=== PATIENT | female | born 1965 | race Hispanic/Latino ===

== ENCOUNTER → 2018-11-10 | Outpatient (CLI) | payer BC ==
[~2018-11-10] MED LIST: LIDOCAINE/PRILOCAINE CREAM 5GM TUBE TP ONE
[2018-11-10 14:31] VITALS: BP 120/73
== END | disposition home or self-care (01) ==
LOC: WHH 11:15
PROVIDERS: ATTEND Podiatrist Foot & Ankle Surgery
DX: E11.621 Type 2 diabetes mellitus with foot ulcer (principal); L97.511 Non-pressure chronic ulcer of other part of right foot limited to breakdown of skin; L97.411 Non-pressure chronic ulcer of right heel and midfoot limited to breakdown of skin; E11.42 Type 2 diabetes mellitus with diabetic polyneuropathy; I10 Essential (primary) hypertension; E66.9 Obesity, unspecified
CPT/HCPCS: 82948; 99205; A4450; A4649; J3490

== ENCOUNTER 2019-12-21 06:16 | Inpatient (IN) | payer BC ==
[~2019-12-21] VITALS: Ht 152.4 cm; Wt 117.7 kg
[2019-12-21] MEDS ORDERED: ACETAMINOPHEN EXTRA STRENGTH 500 MG TABLET ONE (07:54)
[2019-12-21] MEDS ORDERED: AZITHROMYCIN 250 MG TABLET PO ONE (07:54)
[2019-12-21 08:09] LABS: BASOPHILS % (AUTO) 0.2 % (0.0-5.0); EOSINOPHILS % (AUTO) 0.2 % (0.0-8.0); HEMATOCRIT 36.3 % (36-48); LYMPHOCYTES % (AUTO) 17.7 % (21.0-51.0); MEAN CORPUSCULAR HEMOGLOBIN 29.2 pg (27.0-33.0); MEAN CORPUSCULAR HGB CONC 32.8 g/dL (32.0-36.0); MEAN CORPUSCULAR VOLUME 89.2 fL (79-99); MONOCYTES % (AUTO) 4.1 % (3.0-13.0); NEUTROPHILS % (AUTO) 77.3 % (40.0-77.0); PLATELET COUNT (AUTO) 261 K/uL (130-400); RED BLOOD CELL COUNT(AUTO) 4.07 MIL/uL (4.00-5.50); WHITE BLOOD COUNT (AUTO) 9.6 K/uL (4.8-10.8)
[2019-12-21] MEDS ORDERED: AZITHROMYCIN 500MG+NS 250ML 250 ML IV ONE (08:11)
[2019-12-21 08:33] LABS: ALANINE AMINOTRANSFERASE 22 U/L (12-78); ALBUMIN 2.7 g/dL (3.5-5.0); ASPARTATE AMINOTRANSFERASE 25 U/L (10-37); BILIRUBIN,TOTAL 0.4 mg/dL (0.2-1.0); CARBON DIOXIDE 24 mmol/L (21-32); CHLORIDE 100 mmol/L (101-111); CREATINE KINASE, TOTAL 147 U/L (21-232); CREATININE 0.8 mg/dL (0.5-1.5); GLOMERULAR FILTR. RATE CALC 79 mL/min (>60); GLUCOSE,RANDOM 240 mg/dL (70-105); MYOGLOBIN 64 ng/mL (10-92); POTASSIUM 3.4 mmol/L (3.5-5.1); SODIUM SERUM 137 mmol/L (136-145); TOTAL PROTEIN, SERUM 7.5 g/dL (6.0-8.3); TROPONIN I < 0.04 ng/mL (0.00-0.06); UREA NITROGEN, BLOOD 8 mg/dL (7-18)
[2019-12-21 08:34] LABS: INR 0.9 (0.85-1.15); PARTIAL THROMBOPLASTIN TIME 35.2 SEC (26.3-35.5); PROTHROMBIN TIME 9.8 SEC (9.6-11.6)
[2019-12-21] MEDS ORDERED: ACETAMINOPHEN 325 MG TAB PO PRN ×2 (10:30)
[2019-12-21] MEDS ORDERED: ONDANSETRON HCL 4 MG/2 ML VIAL IVP PRN (10:30)
[2019-12-21] MEDS ORDERED: ALBUTEROL INHALER 90MCG/INH IH ONE (10:48)
[2019-12-21] MEDS ORDERED: GABA-529 PO (12:04)
[2019-12-21] MEDS ORDERED: LISI-613 PO (12:04)
[2019-12-21] MEDS ORDERED: GLIP10TA9 PO (12:04)
[2019-12-21] MEDS ORDERED: EMPA10TA PO (12:04)
[2019-12-21] MEDS ORDERED: METF-446 PO (12:04)
[2019-12-21] MEDS ORDERED: METHYLPREDNISOLONE SOD SUCC 40MG/ML 1ML ONE (12:08)
[2019-12-21] MEDS ORDERED: CEFTRIAXONE SODIUM 1 GM ONE (12:08)
[2019-12-21] MEDS ORDERED: FAMOTIDINE 20MG TAB 20 MG TAB ONE ×2 (14:56→23:02)
[2019-12-21] MEDS ORDERED: ENOXAPARIN SODIUM 60 MG/0.6 ML SQ ONE (14:56)
[2019-12-21] MEDS ORDERED: GLUCAGON 1MG KIT 1 MG ML IM PRN (16:45)
[2019-12-21] MEDS ORDERED: DEXTROSE 50%-WATER 50 ML DISP.SYRIN IV PRN (16:45)
[2019-12-21] MEDS ORDERED: FAMOTIDINE 20MG TAB 20 MG TAB PO SCH (21:00)
[2019-12-21] MEDS ORDERED: INSULIN HUMULIN R 100 UNIT/ML 3ML ONE (23:03)
[2019-12-22] MEDS ORDERED: BENZONATATE 100 MG CAPSULE PO ONE ×4 (03:54→15:22)
[2019-12-22] MEDS ORDERED: METHYLPREDNISOLONE SOD SUCC 40MG/ML 1ML ONE ×3 (03:54→21:56)
[2019-12-22] MEDS ORDERED: AZITHROMYCIN 500MG+NS 250ML 250 ML IV ONE (07:34)
[2019-12-22] MEDS ORDERED: SODIUM CHLORIDE 0.9% 250 ML IV ONE (07:37)
[2019-12-22] MEDS ORDERED: FAMOTIDINE 20MG TAB 20 MG TAB ONE (07:39)
[2019-12-22 07:44] LABS: BASOPHILS % (AUTO) 0.2 % (0.0-5.0); HEMATOCRIT 38.4 % (36-48); LYMPHOCYTES % (AUTO) 24.1 % (21.0-51.0); MEAN CORPUSCULAR HGB CONC 33.1 g/dL (32.0-36.0); MEAN CORPUSCULAR VOLUME 90.6 fL (79-99); MONOCYTES % (AUTO) 5.2 % (3.0-13.0); NEUTROPHILS % (AUTO) 69.9 % (40.0-77.0); PLATELET COUNT (AUTO) 322 K/uL (130-400); RED BLOOD CELL COUNT(AUTO) 4.24 MIL/uL (4.00-5.50); RED CELL DISTRIBUTION WIDTH 12.9 % (11.0-15.5); WHITE BLOOD COUNT (AUTO) 4.6 K/uL (4.8-10.8)
[2019-12-22] MEDS ORDERED: INSULIN HUMULIN R 100 UNIT/ML 3ML ONE ×2 (07:53→15:24)
[2019-12-22 08:12] LABS: CREATININE 0.8 mg/dL (0.5-1.5); POTASSIUM 3.8 mmol/L (3.5-5.1)
[2019-12-22] MEDS ORDERED: CEFTRIAXONE SODIUM 1 GM ONE (15:05)
[2019-12-22] MEDS ORDERED: ENOXAPARIN SODIUM 40 MG/0.4 ML SYRINGE SQ ONE (15:05)
[2019-12-22] MEDS ORDERED: SODIUM CHLORIDE 0.9% 50 ML IV ONE (15:05)
--- NOTE | 2019-12-22 15:14 | NUR ---
DCP: HOME Sw unable to speak to pt who is in ER covid unit. Pt spoke to pt's Tomas leary [phone]. They have 4 adult children 2 are still at home sons,22 and 25. believes 25yro son has covid as well and is waiting for results of covid test taken yesterday. Prior to covid exposure, pt was independent, no DME or in home care services. Pt is seen at [facility] and uses [facility] for rx medications. Plan is home at mo Addendum: 12/22/19 at 1527 by ALEAH MOLINA Amended: Links added.
[2019-12-23 05:28] LABS: BASOPHILS % (AUTO) 0.2 % (0.0-5.0); HEMATOCRIT 34.7 % (36-48); LYMPHOCYTES % (AUTO) 18.7 % (21.0-51.0); MEAN CORPUSCULAR HEMOGLOBIN 29.4 pg (27.0-33.0); MEAN CORPUSCULAR HGB CONC 32.9 g/dL (32.0-36.0); MEAN CORPUSCULAR VOLUME 89.4 fL (79-99); MONOCYTES % (AUTO) 6.5 % (3.0-13.0); NEUTROPHILS % (AUTO) 73.6 % (40.0-77.0); PLATELET COUNT (AUTO) 351 K/uL (130-400); RED BLOOD CELL COUNT(AUTO) 3.88 MIL/uL (4.00-5.50); RED CELL DISTRIBUTION WIDTH 12.8 % (11.0-15.5); WHITE BLOOD COUNT (AUTO) 5.9 K/uL (4.8-10.8)
[2019-12-23] MEDS ORDERED: METHYLPREDNISOLONE SOD SUCC 40MG/ML 1ML ONE ×2 (06:45→14:09)
[2019-12-23] MEDS ORDERED: AZITHROMYCIN 500MG+NS 250ML 250 ML IV ONE (07:32)
[2019-12-23] MEDS ORDERED: BENZONATATE 100 MG CAPSULE PO ONE ×2 (07:39→21:38)
[2019-12-23] MEDS ORDERED: INSULIN HUMULIN R 100 UNIT/ML 3ML ONE ×3 (07:40→21:32)
[2019-12-23 07:49] LABS: ALBUMIN 2.4 g/dL (3.5-5.0); BILIRUBIN,TOTAL 0.3 mg/dL (0.2-1.0); CREATININE 0.8 mg/dL (0.5-1.5); CRP QUANTITATIVE 96.3 mg/L (0.00-9.0); TOTAL PROTEIN, SERUM 7.1 g/dL (6.0-8.3)
[2019-12-23] MEDS ORDERED: SODIUM CHLORIDE 0.9% 100 ML IV ONE (14:10)
[2019-12-23] MEDS ORDERED: CEFTRIAXONE SODIUM 1 GM ONE (14:10)
[2019-12-23] MEDS ORDERED: FAMOTIDINE 20MG TAB 20 MG TAB ONE (14:10)
[2019-12-23 14:34] LABS: APPEARANCE,URINE Clear (CLEAR); BILIRUBIN,URINE Negative (NEGATIVE); COLOR,URINE Yellow (YELLOW); GLUCOSE, URINE (UA) >=1000 mg/dL (NEGATIVE); KETONES,URINE 15 mg/dL (NEGATIVE); LEUKOCYTE ESTERASE ,URINE Negative (NEGATIVE); NITRATE,URINE Negative (NEGATIVE); OCCULT BLOOD,URINE Negative (NEGATIVE); PH,URINE 5.5 (5.0-8.0); PROTEIN,URINE POS 1+ mg/dL (NEGATIVE)
[2019-12-23 14:52] LABS: BACTERIA,URINE Rare /HPF (None Seen); MUCUS,URINE Rare LPF (None Seen); RBC,URINE 0-1 /HPF (0-1); SQUAMOUS EPITHELIAL CELL,UR Few /HPF (0-2); WBC,URINE 0-1 /HPF (0-1)
[2019-12-24] MEDS ORDERED: METHYLPREDNISOLONE SOD SUCC 40MG/ML 1ML ONE (05:33)
[2019-12-24 05:59] LABS: BASOPHILS % (AUTO) 0.1 % (0.0-5.0); HEMATOCRIT 33.8 % (36-48); LYMPHOCYTES % (AUTO) 26.5 % (21.0-51.0); MEAN CORPUSCULAR HEMOGLOBIN 30.2 pg (27.0-33.0); MEAN CORPUSCULAR HGB CONC 33.4 g/dL (32.0-36.0); MEAN CORPUSCULAR VOLUME 90.4 fL (79-99); MONOCYTES % (AUTO) 6.1 % (3.0-13.0); NEUTROPHILS % (AUTO) 65.3 % (40.0-77.0); PLATELET COUNT (AUTO) 342 K/uL (130-400); RED BLOOD CELL COUNT(AUTO) 3.74 MIL/uL (4.00-5.50); RED CELL DISTRIBUTION WIDTH 12.7 % (11.0-15.5); WHITE BLOOD COUNT (AUTO) 7.5 K/uL (4.8-10.8)
[2019-12-24 06:39] LABS: CREATININE 0.8 mg/dL (0.5-1.5); CRP QUANTITATIVE 45.7 mg/L (0.00-9.0); POTASSIUM 3.7 mmol/L (3.5-5.1)
[2019-12-24] MEDS: ENOXAPARIN SODIUM 60 MG/0.6 ML SQ SCH (09:00)
[2019-12-24] MEDS ORDERED: AZITHROMYCIN 500MG+NS 250ML 250 ML IV ONE (09:25)
[2019-12-24] MEDS ORDERED: FAMOTIDINE/PF 20 MG/2 ML VIAL IV ONE (09:25)
[2019-12-24] MEDS ORDERED: ENOXAPARIN SODIUM 60 MG/0.6 ML SQ ONE (09:25)
[2019-12-24] MEDS: METHYLPREDNISOLONE SOD SUCC 40MG/ML 1ML IVP SCH ×2 (10:30→17:42)
[2019-12-24] MEDS: AZITHROMYCIN 500MG+NS 250ML 250 ML IV SCH (10:30)
[2019-12-24] MEDS: CEFTRIAXONE SODIUM 1 GM IVP SCH (10:30)
[2019-12-24] MEDS ORDERED: INSULIN HUMULIN R 100 UNIT/ML 3ML ONE (10:37)
[2019-12-24] MEDS: INSULIN HUMULIN R 100 UNIT/ML 3ML SQ SCH ×3 (11:30→22:07)
[2019-12-24] MEDS ORDERED: BENZONATATE 100 MG CAPSULE PO PRN (14:45)
[2019-12-24 16:19] VITALS: BP 145/85
--- NOTE | 2019-12-24 16:43 | NUR ---
DR. Page AWARE OF BS OF [facility] STATES COVER WITH ISS AND RECHECK SCHEDULED.
--- NOTE | 2019-12-24 16:45 | NUR ---
DR. Camilo BLOUNT; BS 457 GIVE SOLUMEDROL ONE HOUR LATER FROM SCHEDULE DOSE.
--- NOTE | 2019-12-24 16:45 | NUR ---
DR. EVERETT AWARE OF CASE STATES HE ALREADY KNOW AND WILL SEE PATIENT LATER.
[2019-12-24 19:17] VITALS: BP 124/68
[2019-12-24] MEDS: PANTOPRAZOLE SODIUM 40 MG TABLET.DR PO SCH (21:28)
[2019-12-24 23:31] VITALS: BP 141/71
[2019-12-25 04:04] VITALS: BP 130/75
[2019-12-25] MEDS: METHYLPREDNISOLONE SOD SUCC 40MG/ML 1ML IVP SCH ×3 (04:07→17:11)
[2019-12-25] MEDS: INSULIN HUMULIN R 100 UNIT/ML 3ML SQ SCH ×5 (04:20→22:07)
[2019-12-25 07:00] VITALS: BP 132/81
[2019-12-25] MEDS: AZITHROMYCIN 500MG+NS 250ML 250 ML IV SCH (08:50)
[2019-12-25] MEDS: PANTOPRAZOLE SODIUM 40 MG TABLET.DR PO SCH (08:50)
[2019-12-25] MEDS: CEFTRIAXONE SODIUM 1 GM IVP SCH (08:50)
[2019-12-25] MEDS: ENOXAPARIN SODIUM 60 MG/0.6 ML SQ SCH (08:50)
[2019-12-25 09:58] LABS: ALBUMIN 2.6 g/dL (3.5-5.0); BILIRUBIN,TOTAL 0.2 mg/dL (0.2-1.0); CREATININE 0.9 mg/dL (0.5-1.5); CRP QUANTITATIVE 28.3 mg/L (0.00-9.0); POTASSIUM 3.5 mmol/L (3.5-5.1); TOTAL PROTEIN, SERUM 6.6 g/dL (6.0-8.3)
[2019-12-25 10:20] LABS: MEAN CORPUSCULAR HEMOGLOBIN 30.1 pg (27.0-33.0); MEAN CORPUSCULAR HGB CONC 33.1 g/dL (32.0-36.0); MEAN CORPUSCULAR VOLUME 90.7 fL (79-99); NUCLEATED RED BLOOD CELLS 0.2 % (0.0-0.19); PLATELET COUNT (AUTO) 354 K/uL (130-400); RED BLOOD CELL COUNT(AUTO) 3.86 MIL/uL (4.00-5.50); RED CELL DISTRIBUTION WIDTH 12.8 % (11.0-15.5); WHITE BLOOD COUNT (AUTO) 8.1 K/uL (4.8-10.8)
[2019-12-25 11:00] VITALS: BP 135/76
[2019-12-25 11:12] LABS: LYMPHOCYTES % (MANUAL) 15 % (22-44); MONOCYTES % (MANUAL) 8 % (2-9); REACTIVE LYMPHOCYTES 4 % (0-0); SEGMENTED NEUTROPHILS % 73 % (40-70)
[2019-12-25 11:13] LABS: PLATELET MORPHOLOGY COMMENT ADEQUATE
--- NOTE | 2019-12-25 12:00 | NUR ---
DR.B SANCHEZ EVALUATED AND EDUCATED THE PT.
--- NOTE | 2019-12-25 14:27 | NUR ---
DR. EVERETT ROUND AND EVALUATED THE PT.
[2019-12-25 16:00] VITALS: BP 158/76
[2019-12-25 19:58] VITALS: BP 130/69
[2019-12-26 00:43] VITALS: BP 127/60
[2019-12-26] MEDS: INSULIN HUMULIN R 100 UNIT/ML 3ML SQ SCH ×5 (01:16→16:40)
[2019-12-26] MEDS: METHYLPREDNISOLONE SOD SUCC 40MG/ML 1ML IVP SCH ×3 (02:10→17:06)
[2019-12-26 03:54] VITALS: BP 136/71
--- NOTE | 2019-12-26 05:00 | NUR ---
PT CONTINUES WITH ELEVATED BLOOD SUGARS. RECEIVING INSULIN Q4. ASYMPTOMATIC. STATES CONCERN OVER HER SONS, WHO SHE BELIEVES ARE COVID POSITIVE AT HOME.
[2019-12-26 06:03] LABS: BASOPHILS % (AUTO) 0.3 % (0.0-5.0); HEMATOCRIT 35.2 % (36-48); LYMPHOCYTES % (AUTO) 19.5 % (21.0-51.0); MEAN CORPUSCULAR HEMOGLOBIN 29.2 pg (27.0-33.0); MEAN CORPUSCULAR HGB CONC 32.1 g/dL (32.0-36.0); MONOCYTES % (AUTO) 7.1 % (3.0-13.0); NEUTROPHILS % (AUTO) 66.7 % (40.0-77.0); NUCLEATED RED BLOOD CELLS 0.4 % (0.0-0.19); PLATELET COUNT (AUTO) 373 K/uL (130-400); RED BLOOD CELL COUNT(AUTO) 3.87 MIL/uL (4.00-5.50); RED CELL DISTRIBUTION WIDTH 12.5 % (11.0-15.5); WHITE BLOOD COUNT (AUTO) 10.1 K/uL (4.8-10.8)
[2019-12-26 06:27] LABS: CREATININE 0.8 mg/dL (0.5-1.5); CRP QUANTITATIVE 18.7 mg/L (0.00-9.0)
[2019-12-26] MEDS: PANTOPRAZOLE SODIUM 40 MG TABLET.DR PO SCH (08:36)
[2019-12-26] MEDS: ENOXAPARIN SODIUM 60 MG/0.6 ML SQ SCH (08:36)
[2019-12-26] MEDS ORDERED: METHYLPREDNISOLONE SOD SUCC 125MG/2ML VIAL ONE (08:39)
[2019-12-26] MEDS: AZITHROMYCIN 500MG+NS 250ML 250 ML IV SCH (08:42)
[2019-12-26] MEDS: CEFTRIAXONE SODIUM 1 GM IVP SCH (08:42)
[2019-12-26 08:59] VITALS: BP 132/71
[2019-12-26] MEDS ORDERED: LISINOPRIL 20 MG TABLET PO SCH (09:00)
[2019-12-26 12:47] VITALS: BP 132/66
--- NOTE | 2019-12-26 13:08 | NUR ---
DC PLAN SPOKE TO SPOUSE AND PATIENT. PATIENT GAVE TELEPHONE CONSENT FOR HOME 02 ANY IN NETWORK. INFO SENT TO [place] PATIENT. Addendum: 12/26/19 at 1311 by JOSE ARROYO RN CM Amended: Links added.
[2019-12-26] MEDS ORDERED: APIX2.5T PO (15:37)
[2019-12-26] MEDS ORDERED: DEXA6TAB PO (15:37)
[2019-12-26 16:22] VITALS: BP 149/74
--- NOTE | 2019-12-26 20:00 | NUR ---
PT DISCHARGED AT THIS TIME. NO DISTRESS NOTED. HOME O2 READY. PT WAS ESCORTED DOWN VIA WHEELCHAIR.
== END 2019-12-26 20:10 | disposition home or self-care (01) | DRG 177 ==
LOC: EDH 06:16 → EDHIP 10:18 → 2DH 12-24 15:30
PROVIDERS: ADMIT Hospitalist; ATTEND Hospitalist
DX: U07.1 COVID-19 (principal); J96.01 Acute respiratory failure with hypoxia; J12.89 Other viral pneumonia; E11.9 Type 2 diabetes mellitus without complications; I10 Essential (primary) hypertension; Z98.891 History of uterine scar from previous surgery; Z90.49 Acquired absence of other specified parts of digestive tract; Z88.8 Allergy status to other drugs, medicaments and biological substances; Z83.3 Family history of diabetes mellitus; Z82.5 Family history of asthma and other chronic lower respiratory diseases; Z82.0 Family history of epilepsy and other diseases of the nervous system; Z82.49 Family history of ischemic heart disease and other diseases of the circulatory system
CPT/HCPCS: 36415; 71045; 80048; 80053; 81001; 82550; 82728; 82948; 83605; 83615; 83874; 84145; 84484; 85025; 85378; 85610; 85730; 86140; 87040; 87088; 93005; 94760; 99291; G0378; J0456; J0696; J1650; J1815; J2920; J2930; J3490; J7050

== ENCOUNTER → 2025-02-09 | Outpatient (CLI) | payer OTHER ==
[~2025-02-09] MED LIST changes: +APIX2.5T PO; +DEXA6TAB PO; +EMPA10TA PO; +GABA-529 PO; +GLIP10TA16 PO; -LIDOCAINE/PRILOCAINE CREAM 5GM TUBE TP ONE; +LISI20TA24 PO; +METF-446 PO
--- NOTE | 2025-02-10 11:03 | HMCIMG ---
EXAM: CT Cardiac calcium scoring. CLINICAL HISTORY: Screening. TECHNIQUE: Thin collimated axial CT cardiac images were obtained. A CT scan is done according to ALARA (As Low As Reasonably Achievable). CONTRAST: None. COMPARISON: None provided. FINDINGS: Calcium Score: VESSEL Number of lesions Volume mm3 Equi. Mass/mg Calcium score LM 1 3.6 - 5.2 LAD 0 0 - 0 LCX 0 0 - 0 RCA 0 0 - 0 Total 1 3.6 - 5.2 IMPRESSION: The total calcium score is 5.2. 68th percentile. /[place]
== END | disposition home or self-care (01) ==
LOC: RAH 15:33
PROVIDERS: ATTEND Family Medicine
DX: Z13.6 Encounter for screening for cardiovascular disorders (principal)
CPT/HCPCS: 75571